=== PATIENT | female | born 1995 | race Caucasian/White ===

== ENCOUNTER 2019-02-12 08:26 | Emergency (ER) | payer SELFPAY ==
[~2019-02-12] VITALS: Ht 162.6 cm; Wt 72.7 kg
[2019-02-12 08:39] VITALS: Ht 162.6 cm; Wt 72.7 kg
[2019-02-12] MEDS ORDERED: MUPIROCIN22 GM TOPICAL (12:28)
[2019-02-12 12:41] VITALS: BP 118/62
== END 2019-02-12 12:42 | disposition home or self-care (01) ==
LOC: D.ER 08:26
DX: S50.861A Insect bite (nonvenomous) of right forearm, initial encounter (principal); S80.861A Insect bite (nonvenomous), right lower leg, initial encounter; S40.862A Insect bite (nonvenomous) of left upper arm, initial encounter; W57.XXXA Bitten or stung by nonvenomous insect and other nonvenomous arthropods, initial encounter; Y93.9 Activity, unspecified; Y92.89 Other specified places as the place of occurrence of the external cause